=== PATIENT | female | born 1940 | race Caucasian/White ===

== ENCOUNTER 2016-07-24 09:02 | Inpatient (IN) | payer OTHER ==
[~2016-07-24] VITALS: Ht 160 cm; Wt 86.2 kg
[~2016-07-24 09:02] MED LIST: ACTONEL35 MG PO; ACTONEL5 MG PO; ACULAR 3ML 3 ML5 ML; ALLERGY 4-HOUR4 MG PO; AMOXICILLIN500 M2 PO; ANAPROX DS550 MG PO; ATENOLOL50 MG PO; CELEXA10 MG PO; CELEXA20 MG; CIPRO500 MG PO; CIPROFLOXACIN500 MG PO; CITALOPRAM10 MG PO; CITALOPRAM20 MG PO; COLACE100 MG PO; COMTAN200 MG; COMTAN200 MG PO; COREG6.25 MG; COREG6.25 MG PO; CYCLOBENZAPRINE5 MG PO; DARVOCET N 1001 TAB PO; DOCUSATE CALCI100 MG PO; GLUCOPHAGE500 MG PO; HUMALOG100 U/ML; HUMALOG100 UNIT/2 SQ; HUMULIN 70/30 720 ML SC; IMDUR30 MG PO; LEVEMIR10 ML SC; LEVEMIR100 U/ML SC; LYRICA75 MG PO; MACROBID100 M1 PO; MAGNESIUM OXID400 MG PO; METFORMIN500 MG PO; MIRALAX POWDER17 G1 PO; MIRALAX17 GM PO; NEXIUM40 MG; NEXIUM40 MG PO; NITROSTAT0.3 M1 SL; NORVASC5 MG PO; NOVOLOG 701 UNIT/0.0 SC; NOVOLOG FLEX100 U/ML SC; NOVOLOG MIX 70/33 ML; NOVOLOG MIX 70/33 ML SC; OCUFLOX 0.3% 5 M5 ML; PHILLIPS' STOO100 MG PO; PLAVIX75 M1 PO; PLAVIX75 MG PO; PRAVACHOL40 MG PO; PRED FORTE 1 ML1 ML; PREVACID15 MG PO; PRILOSEC20 M1 PO; PYRIDIUM200 MG PO; Percocet 325 MG1 TAB PO; SINEMET 25-1001 TA1; SORBITRATE PO; STALEVO 100 251 TAB PO; SYMBICORT1 AE1; SYMBICORT1 AE1 IH; SYMBICORT1 AER INH; SYNTHROID,LEV100 MCG PO; TYLENOL500 MG PO; ULTRAM50 MG PO; VITAMIN D2000 IU PO; VITAMIN D32000 UNI1 PO; ZOFRAN4 MG PO; Zofran4 MG; [UNRECOGNIZED DRUG - CODE] PO; [UNRECOGNIZED DRUG - REMARK] SC
[2016-07-24 09:51] LABS: BASO % 0.4 % (0.0-1.0); EOS # 0.1 10*3/uL (0.0-0.4); EOS % 1.6 % (1.0-4.0); HEMATOCRIT 33.4 % (37.0-47.0); HEMOGLOBIN 11.5 g/dl (12.0-16.0); LYMPH # 1.4 10*3/uL (1.3-4.4); LYMPH % 19.4 % (27.0-41.0); MEAN CELL VOLUME 87.7 fl (81.0-99.0); MEAN CORPUSCULAR HGB 30.2 pg (27.0-31.0); MEAN CORPUSCULAR HGB CONC 34.4 g/dl (33.0-37.0); MEAN PLATELET VOLUME 9.8 fl (9.6-12.3); MONO # 0.7 10*3/uL (0.1-1.0); NEUT # 4.8 10*3/uL (2.3-7.9); NEUT % 68.3 % (47.0-73.0); PLATELET COUNT AUTOMATED 226 10*3/uL (130-400); RED BLOOD COUNT 3.81 10*6/uL (4.10-5.10); RED CELL DISTRI WIDTH 14.6 % (0-14.5); WHITE BLOOD COUNT 7.1 10*3/uL (4.8-10.8)
[2016-07-24] MEDS ORDERED: SYMBICORT1 AE1 INH (09:57)
[2016-07-24 09:59] LABS: PROTHROMBIN TIME 10.8 SECONDS (9.0-12.4)
[2016-07-24 10:07] LABS: ALBUMIN 3.5 gm/dl (3.1-4.5); ALKALINE PHOSPHATASE 77 U/L (45-117); BILIRUBIN, TOTAL 0.7 mg/dl (0.2-1.0); BUN 12 mg/dl (7-24); C-REACTIVE PROTEIN 1.58 MG/DL (0-0.3); CARBON DIOXIDE 28 mmol/L (21-32); CHLORIDE 93 mmol/L (98-107); CKMB 2.4 ng/ml (0.5-3.6); CPK 138 U/L (26-192); EST GLOM FILT AFRICAN AMERICAN > 60 ml/min; GLUCOSE 102 mg/dL (65-99); MAGNESIUM 1.5 mg/dL (1.5-2.1); POTASSIUM 3.5 mmol/L (3.5-5.1); SGOT/AST 27 IU/L (3-35); SGPT/ALT 14 U/L (12-78); SODIUM 133 mmol/L (136-145); TOTAL PROTEIN 7.6 gm/dL (6.4-8.2); TROPONIN I < 0.015 ng/ml (<0.045)
[2016-07-24] MEDS ORDERED: NEXIUM40 MG PO (10:07)
[2016-07-24] MEDS ORDERED: PROAIR HFA8.5 GM INH (10:10)
[2016-07-24] MEDS ORDERED: ACTONEL35 MG PO (10:11)
[2016-07-24] MEDS ORDERED: GLUCOPHAGE500 M1 PO (10:13)
[2016-07-24] MEDS ORDERED: IMDUR SA30 MG PO (10:14)
[2016-07-24] MEDS ORDERED: LYRICA75 M1 PO (10:15)
[2016-07-24] MEDS ORDERED: SINEMET 25-1001 TA1 PO (10:16)
[2016-07-24] MEDS ORDERED: Zofran4 MG PO (10:17)
[2016-07-24] MEDS ORDERED: VOLTAREN11 PO (10:19)
[2016-07-24] MEDS ORDERED: MULTI VITAMINS1 TAB PO (10:21)
[2016-07-24] MEDS ORDERED: NORCO 7.5-3251 EACH PO (10:21)
[2016-07-24] MEDS ORDERED: TYLENOL EXTRA500 M2 PO (14:17)
[2016-07-24] MEDS ORDERED: NOVOLOG MIX 70/33 ML SQ (14:19)
[2016-07-24] MEDS ORDERED: ALLERGY 4-HOUR4 MG PO (14:19)
[2016-07-24] MEDS ORDERED: ZOFRAN4 MG PO (14:20)
[2016-07-24] MEDS ORDERED: NITROSTAT0.4 MG SL (14:21)
[2016-07-24] MEDS ORDERED: VOLTAREN GEL1% TP (14:21)
[2016-07-24] MEDS ORDERED: LYSINE500 MG PO (14:22)
[2016-07-24 16:34] LABS: BILIRUBIN NEGATIVE (NEGATIVE); BLOOD NEGATIVE (NEGATIVE); CLARITY SL CLOUDY (CLEAR); COLOR YELLOW (YELLOW); GLUCOSE NEGATIVE (NEGATIVE); KETONE NEGATIVE (NEGATIVE); LEUKO ESTERASE TRACE (NEGATIVE); NITRITE NEGATIVE (NEGATIVE); PROTEIN TRACE (NEGATIVE); UROBILINOGEN 0.2 E.U./dl (0.2-1.0)
[2016-07-24 16:40] LABS: RBC 0-2 rbc/hpf (0-2); URINE REFLEX COMMENT YES (NO)
[2016-07-24 17:58] LABS: CKMB 2.3 ng/ml (0.5-3.6); CPK 133 U/L (26-192)
[2016-07-24 17:59] LABS: TROPONIN I < 0.015 ng/ml (<0.045)
[2016-07-25 00:56] LABS: CKMB 2.1 ng/ml (0.5-3.6); CPK 118 U/L (26-192); TROPONIN I < 0.015 ng/ml (<0.045)
[2016-07-25 06:34] LABS: HEMOGLOBIN 11.7 g/dl (12.0-16.0); IG # 0.1 10*3/uL (0.0-0.1); LYMPH # 0.8 10*3/uL (1.3-4.4); MEAN CELL VOLUME 88.8 fl (81.0-99.0); MEAN CORPUSCULAR HGB 30.5 pg (27.0-31.0); MEAN CORPUSCULAR HGB CONC 34.4 g/dl (33.0-37.0); MEAN PLATELET VOLUME 10.3 fl (9.6-12.3); MONO # 0.1 10*3/uL (0.1-1.0); MONO % 1.3 % (3.0-9.0); NEUT # 6.2 10*3/uL (2.3-7.9); PLATELET COUNT AUTOMATED 230 10*3/uL (130-400); RED BLOOD COUNT 3.83 10*6/uL (4.10-5.10); RED CELL DISTRI WIDTH 14.6 % (0-14.5); WHITE BLOOD COUNT 7.2 10*3/uL (4.8-10.8)
[2016-07-25 06:46] LABS: CKMB 2.2 ng/ml (0.5-3.6); CPK 126 U/L (26-192)
[2016-07-25 06:47] LABS: TROPONIN I < 0.015 ng/ml (<0.045)
[2016-07-25 06:54] LABS: HEMOGLOBIN A1c 7.8 % (4.8-5.6)
[2016-07-25 07:09] LABS: ALBUMIN 3.4 gm/dl (3.1-4.5); ALKALINE PHOSPHATASE 79 U/L (45-117); BILIRUBIN, TOTAL 0.6 mg/dl (0.2-1.0); BUN 15 mg/dl (7-24); CARBON DIOXIDE 28 mmol/L (21-32); CHLORIDE 93 mmol/L (98-107); CHOLESTEROL 177 mg/dL (<200); EST GLOM FILT AFRICAN AMERICAN > 60 ml/min; FREE T4 0.18 ng/dl (0.76-1.46); GLUCOSE 312 mg/dL (65-99); HDL CHOLESTEROL 83 mg/dl (40-60); LDL CHOLESTEROL 80 mg/dL (9-159); MAGNESIUM 1.6 mg/dL (1.5-2.1); PHOSPHOROUS 2.6 mg/dL (2.5-4.9); POTASSIUM 3.9 mmol/L (3.5-5.1); SGOT/AST 20 IU/L (3-35); SGPT/ALT 19 U/L (12-78); SODIUM 134 mmol/L (136-145); TOTAL PROTEIN 7.6 gm/dL (6.4-8.2); TRIGLYCERIDES 72 mg/dl (<150); VLDL CHOLESTEROL 14 mg/dL (6-40)
[2016-07-25 07:11] LABS: PROTHROMBIN TIME 10.8 SECONDS (9.0-12.4)
[2016-07-25 07:32] LABS: FOLIC ACID 10.37 ng/mL (>5.38); VITAMIN D, 25-HYDROXY 27.6 ng/mL (30-100)
[2016-07-26 06:12] LABS: HEMATOCRIT 31.6 % (37.0-47.0); HEMOGLOBIN 10.7 g/dl (12.0-16.0); MEAN CELL VOLUME 89.8 fl (81.0-99.0); MEAN CORPUSCULAR HGB 30.4 pg (27.0-31.0); MEAN CORPUSCULAR HGB CONC 33.9 g/dl (33.0-37.0); MEAN PLATELET VOLUME 10.1 fl (9.6-12.3); PLATELET COUNT AUTOMATED 233 10*3/uL (130-400); RED BLOOD COUNT 3.52 10*6/uL (4.10-5.10); RED CELL DISTRI WIDTH 14.7 % (0-14.5); WHITE BLOOD COUNT 10.3 10*3/uL (4.8-10.8)
[2016-07-26 06:21] LABS: BUN 13 mg/dl (7-24); CARBON DIOXIDE 28 mmol/L (21-32); CHLORIDE 96 mmol/L (98-107); EST GLOM FILT AFRICAN AMERICAN > 60 ml/min; GLUCOSE 307 mg/dL (65-99); POTASSIUM 3.8 mmol/L (3.5-5.1); SODIUM 135 mmol/L (136-145)
[2016-07-26 06:40] LABS: LYMPHOCYTE # 0.3 10*3/uL (1.3-4.4); NEUTROPHILS 97 % (47-73); TOTAL CELLS COUNTED 100 #CELLS
[2016-07-26 06:41] LABS: PLATELET SUFFICIENCY NORMAL (NORMAL)
[2016-07-26] MEDS ORDERED: MUCINEX ER600 MG PO (10:34)
[2016-07-26] MEDS ORDERED: LEVAQUIN750 M1 PO (10:34)
== END 2016-07-26 14:37 | disposition home or self-care (01) | DRG 189 ==
LOC: ED 09:02 → EDHOLD 10:25 → 5E 10:30
PROVIDERS: Emergency Medicine; Hospitalist; Internal Medicine
DX: J96.00 Acute respiratory failure, unspecified whether with hypoxia or hypercapnia (principal); E11.65 Type 2 diabetes mellitus with hyperglycemia; D64.9 Anemia, unspecified; J44.1 Chronic obstructive pulmonary disease with (acute) exacerbation; E87.1 Hypo-osmolality and hyponatremia; R07.89 Other chest pain; I10 Essential (primary) hypertension; I25.10 Atherosclerotic heart disease of native coronary artery without angina pectoris; Z95.5 Presence of coronary angioplasty implant and graft; Z85.118 Personal history of other malignant neoplasm of bronchus and lung; Z86.73 Personal history of transient ischemic attack (TIA), and cerebral infarction without residual deficits; Z85.42 Personal history of malignant neoplasm of other parts of uterus; Z96.653 Presence of artificial knee joint, bilateral; Z90.49 Acquired absence of other specified parts of digestive tract; Z82.3 Family history of stroke; Z82.49 Family history of ischemic heart disease and other diseases of the circulatory system; Z79.4 Long term (current) use of insulin; I25.2 Old myocardial infarction; E78.5 Hyperlipidemia, unspecified

== ENCOUNTER 2016-07-31 15:39 | Emergency (ER) | payer OTHER ==
[~2016-07-31] VITALS: Ht 152.4 cm
[~2016-07-31 15:39] MED LIST changes: +GLUCOPHAGE500 M1 PO; +IMDUR SA30 MG PO; +LEVAQUIN750 M1 PO; +LYRICA75 M1 PO; +LYSINE500 MG PO; +MUCINEX ER600 MG PO; +MULTI VITAMINS1 TAB PO; +NITROSTAT0.4 MG SL; +NORCO 7.5-3251 EACH PO; +NOVOLOG MIX 70/33 ML SQ; +PROAIR HFA8.5 GM INH; +SINEMET 25-1001 TA1 PO; +SYMBICORT1 AE1 INH; +TYLENOL EXTRA500 M2 PO; +VOLTAREN GEL1% TP; +VOLTAREN11 PO; +Zofran4 MG PO
[2016-07-31 15:40] VITALS: BP 137/85
[2016-07-31 16:23] LABS: BASO % 0.1 % (0.0-1.0); EOS # 0.1 10*3/uL (0.0-0.4); EOS % 1.7 % (1.0-4.0); HEMATOCRIT 33.8 % (37.0-47.0); HEMOGLOBIN 11.4 g/dl (12.0-16.0); IG # 0.1 10*3/uL (0.0-0.1); LYMPH # 1.5 10*3/uL (1.3-4.4); MEAN CELL VOLUME 89.4 fl (81.0-99.0); MEAN CORPUSCULAR HGB 30.2 pg (27.0-31.0); MEAN CORPUSCULAR HGB CONC 33.7 g/dl (33.0-37.0); MEAN PLATELET VOLUME 9.4 fl (9.6-12.3); MONO # 0.7 10*3/uL (0.1-1.0); MONO % 8.3 % (3.0-9.0); NEUT # 5.7 10*3/uL (2.3-7.9); NEUT % 70.5 % (47.0-73.0); PLATELET COUNT AUTOMATED 225 10*3/uL (130-400); RED BLOOD COUNT 3.78 10*6/uL (4.10-5.10); RED CELL DISTRI WIDTH 14.8 % (0-14.5); WHITE BLOOD COUNT 8.1 10*3/uL (4.8-10.8)
[2016-07-31] MEDS ORDERED: OXYGEN NAS (16:29)
[2016-07-31] MEDS ORDERED: CELEXA40 MG PO (16:32)
[2016-07-31] MEDS ORDERED: GLUCOPHAGE500 MG PO (16:33)
[2016-07-31 16:38] LABS: ALBUMIN 3.4 gm/dl (3.1-4.5); ALKALINE PHOSPHATASE 99 U/L (45-117); BILIRUBIN, TOTAL 0.5 mg/dl (0.2-1.0); BUN 19 mg/dl (7-24); CARBON DIOXIDE 35 mmol/L (21-32); CHLORIDE 88 mmol/L (98-107); EST GLOM FILT AFRICAN AMERICAN > 60 ml/min; GLUCOSE 218 mg/dL (65-99); POTASSIUM 3.6 mmol/L (3.5-5.1); SGOT/AST 18 IU/L (3-35); SGPT/ALT 33 U/L (12-78); SODIUM 133 mmol/L (136-145); TOTAL PROTEIN 7.2 gm/dL (6.4-8.2)
[2016-07-31 16:47] LABS: BILIRUBIN NEGATIVE (NEGATIVE); BLOOD NEGATIVE (NEGATIVE); CLARITY SL CLOUDY (CLEAR); COLOR YELLOW (YELLOW); GLUCOSE NEGATIVE (NEGATIVE); KETONE NEGATIVE (NEGATIVE); LEUKO ESTERASE 1+ (NEGATIVE); NITRITE NEGATIVE (NEGATIVE); PH 6.5 (5.0-9.0); PROTEIN NEGATIVE (NEGATIVE); SPECIFIC GRAVITY 1.015 (1.005-1.030); UROBILINOGEN 0.2 E.U./dl (0.2-1.0)
[2016-07-31 17:00] LABS: BACTERIA 2+; URINE REFLEX COMMENT YES (NO); WBC 41-50 wbc/hpf (0-5)
[2016-07-31] MEDS ORDERED: BACTRIM DS 8001 TA1 PO (18:29)
== END 2016-07-31 18:30 | disposition home or self-care (01) ==
LOC: ED 15:39
PROVIDERS: Emergency Medicine
DX: E87.1 Hypo-osmolality and hyponatremia (principal); N39.0 Urinary tract infection, site not specified; R60.9 Edema, unspecified; Z87.891 Personal history of nicotine dependence; Z90.49 Acquired absence of other specified parts of digestive tract; J45.909 Unspecified asthma, uncomplicated; I10 Essential (primary) hypertension; Z86.73 Personal history of transient ischemic attack (TIA), and cerebral infarction without residual deficits; E78.5 Hyperlipidemia, unspecified; E11.9 Type 2 diabetes mellitus without complications; Z79.4 Long term (current) use of insulin; Z79.899 Other long term (current) drug therapy

== ENCOUNTER 2016-08-04 07:55 | Emergency (ER) | payer OTHER ==
[~2016-08-04] VITALS: Ht 165.1 cm; Wt 74.8 kg
[2016-08-04 07:55] VITALS: BP 142/78
[~2016-08-04 07:55] MED LIST changes: +BACTRIM DS 8001 TA1 PO; +CELEXA40 MG PO; +OXYGEN NAS
[2016-08-04 09:26] LABS: BASO % 0.2 % (0.0-1.0); EOS % 0.3 % (1.0-4.0); HEMATOCRIT 30.4 % (37.0-47.0); HEMOGLOBIN 10.2 g/dl (12.0-16.0); IG # 0.1 10*3/uL (0.0-0.1); LYMPH # 0.8 10*3/uL (1.3-4.4); LYMPH % 7.9 % (27.0-41.0); MEAN CELL VOLUME 90.7 fl (81.0-99.0); MEAN CORPUSCULAR HGB 30.4 pg (27.0-31.0); MEAN CORPUSCULAR HGB CONC 33.6 g/dl (33.0-37.0); MEAN PLATELET VOLUME 9.3 fl (9.6-12.3); MONO # 1.1 10*3/uL (0.1-1.0); MONO % 10.7 % (3.0-9.0); NEUT # 8.4 10*3/uL (2.3-7.9); NEUT % 80.1 % (47.0-73.0); PLATELET COUNT AUTOMATED 194 10*3/uL (130-400); RED BLOOD COUNT 3.35 10*6/uL (4.10-5.10); RED CELL DISTRI WIDTH 14.7 % (0-14.5); WHITE BLOOD COUNT 10.5 10*3/uL (4.8-10.8)
[2016-08-04 09:42] LABS: BUN 12 mg/dl (7-24); CARBON DIOXIDE 31 mmol/L (21-32); CHLORIDE 91 mmol/L (98-107); EST GLOM FILT AFRICAN AMERICAN > 60 ml/min; GLUCOSE 283 mg/dL (65-99); POTASSIUM 3.8 mmol/L (3.5-5.1); SODIUM 131 mmol/L (136-145)
[2016-08-04 15:30] VITALS: BP 131/76
[2016-08-04 17:00] VITALS: BP 144/82
[2016-08-04 19:00] VITALS: BP 138/86
== END 2016-08-04 22:00 | disposition short-term general hospital (02) ==
LOC: ED 07:55 → EDHOLD 14:28 → ED 14:28 → 4E 14:54 → EDHOLD 14:54 → ED 22:00
PROVIDERS: Emergency Medicine
DX: J18.1 Lobar pneumonia, unspecified organism (principal); R91.8 Other nonspecific abnormal finding of lung field; J45.909 Unspecified asthma, uncomplicated; I25.10 Atherosclerotic heart disease of native coronary artery without angina pectoris; I10 Essential (primary) hypertension; I25.2 Old myocardial infarction; E78.5 Hyperlipidemia, unspecified; G20 Parkinson's disease; E11.65 Type 2 diabetes mellitus with hyperglycemia; Z85.828 Personal history of other malignant neoplasm of skin; Z86.73 Personal history of transient ischemic attack (TIA), and cerebral infarction without residual deficits; Z90.49 Acquired absence of other specified parts of digestive tract; Z96.653 Presence of artificial knee joint, bilateral; Z98.890 Other specified postprocedural states; Z87.891 Personal history of nicotine dependence; Z79.899 Other long term (current) drug therapy; Z79.4 Long term (current) use of insulin

== ENCOUNTER 2016-10-16 07:54 | Inpatient (IN) | payer OTHER ==
[2016-10-16] VITALS (7 sets, daily range): BP systolic 96–148; BP diastolic 50–94
[~2016-10-16] VITALS: Ht 157.4 cm; Wt 81.3 kg
[2016-10-16 08:20] LABS: BASO % 0.2 % (0.0-1.0); EOS % 0.2 % (1.0-4.0); HEMATOCRIT 33.4 % (37.0-47.0); HEMOGLOBIN 11.1 g/dl (12.0-16.0); IG # 0.1 10*3/uL (0.0-0.1); LYMPH # 0.8 10*3/uL (1.3-4.4); LYMPH % 14.6 % (27.0-41.0); MEAN CELL VOLUME 89.3 fl (81.0-99.0); MEAN CORPUSCULAR HGB 29.7 pg (27.0-31.0); MEAN CORPUSCULAR HGB CONC 33.2 g/dl (33.0-37.0); MEAN PLATELET VOLUME 9.1 fl (9.6-12.3); MONO # 0.4 10*3/uL (0.1-1.0); MONO % 7.1 % (3.0-9.0); NEUT # 4.2 10*3/uL (2.3-7.9); PLATELET COUNT AUTOMATED 291 10*3/uL (130-400); RED BLOOD COUNT 3.74 10*6/uL (4.10-5.10); RED CELL DISTRI WIDTH 13.8 % (0-14.5); WHITE BLOOD COUNT 5.5 10*3/uL (4.8-10.8)
[2016-10-16 08:29] LABS: INTERNATIONAL NORM RATIO 1.1 (2.0-3.5); PROTHROMBIN TIME 11.6 SECONDS (9.0-12.4)
[2016-10-16 08:35] LABS: ALBUMIN 3.4 gm/dl (3.1-4.5); ALKALINE PHOSPHATASE 137 U/L (45-117); BILIRUBIN, TOTAL 0.7 mg/dl (0.2-1.0); BUN 16 mg/dl (7-24); CARBON DIOXIDE 33 mmol/L (21-32); CHLORIDE 91 mmol/L (98-107); EST GLOM FILT AFRICAN AMERICAN > 60 ml/min; GLUCOSE 455 mg/dL (65-99); MAGNESIUM 1.3 mg/dL (1.5-2.1); POTASSIUM 3.9 mmol/L (3.5-5.1); SGOT/AST 23 IU/L (3-35); SGPT/ALT 6 U/L (12-78); SODIUM 135 mmol/L (136-145); TOTAL PROTEIN 8.3 gm/dL (6.4-8.2)
[2016-10-16 08:37] LABS: FREE T4 1.24 ng/dl (0.76-1.46)
[2016-10-16 08:49] LABS: BILIRUBIN NEGATIVE (NEGATIVE); BLOOD 1+ (NEGATIVE); CLARITY CLOUDY (CLEAR); COLOR YELLOW (YELLOW); GLUCOSE 3+ (NEGATIVE); KETONE 1+ (NEGATIVE); LEUKO ESTERASE 1+ (NEGATIVE); NITRITE NEGATIVE (NEGATIVE); PH 6.5 (5.0-9.0); PROTEIN 1+ (NEGATIVE); SPECIFIC GRAVITY <= 1.005 (1.005-1.030); UROBILINOGEN 0.2 E.U./dl (0.2-1.0)
[2016-10-16 08:59] LABS: URINE REFLEX COMMENT YES (NO)
[2016-10-16 09:00] LABS: BACTERIA 2+; RBC 0-2 rbc/hpf (0-2); WBC TNTC wbc/hpf (0-5)
[2016-10-16 09:18] LABS: BUN 17 mg/dl (7-24); CARBON DIOXIDE 33 mmol/L (21-32); CHLORIDE 91 mmol/L (98-107); EST GLOM FILT AFRICAN AMERICAN > 60 ml/min; GLUCOSE 445 mg/dL (65-99); POTASSIUM 4.2 mmol/L (3.5-5.1); SODIUM 132 mmol/L (136-145)
[2016-10-16] MEDS ORDERED: LASIX40 MG PO (09:20)
[2016-10-16] MEDS ORDERED: BREO ELLIPTA 11 EACH IH (09:21)
[2016-10-16] MEDS ORDERED: CLARITIN10 MG PO (09:22)
[2016-10-16] MEDS ORDERED: ALENDRONATE SOD70 M1 PO (09:25)
[2016-10-16 10:17] LABS: LA>2 REFLEX 2 HR DRAW NOW
[2016-10-16 10:34] LABS: BUN 19 mg/dl (7-24); CARBON DIOXIDE 31 mmol/L (21-32); CHLORIDE 97 mmol/L (98-107); EST GLOM FILT AFRICAN AMERICAN > 60 ml/min; GLUCOSE 228 mg/dL (65-99); POTASSIUM 4.4 mmol/L (3.5-5.1); SODIUM 140 mmol/L (136-145)
[2016-10-16 10:39] LABS: LA>2 RFLX FOLLOW UP AT 2 HRS 3.8 mmol/L (0.4-2.0)
[2016-10-16 12:30] LABS: LA>2 REFLEX 4 HR DRAW NOW
[2016-10-16 12:32] LABS: CKMB 0.7 ng/ml (0.5-3.6); CPK 58 U/L (26-192)
[2016-10-16 12:34] LABS: TROPONIN I < 0.015 ng/ml (<0.045)
[2016-10-16 18:40] LABS: CKMB 1.1 ng/ml (0.5-3.6); CPK 70 U/L (26-192)
[2016-10-16 18:43] LABS: TROPONIN I < 0.015 ng/ml (<0.045)
[2016-10-17] VITALS: BP 113/82
[2016-10-17 00:21] LABS: CKMB 0.8 ng/ml (0.5-3.6); CPK 88 U/L (26-192)
[2016-10-17 00:22] LABS: TROPONIN I < 0.015 ng/ml (<0.045)
[2016-10-17 06:31] LABS: BASO % 0.3 % (0.0-1.0); EOS % 0.3 % (1.0-4.0); HEMATOCRIT 30.7 % (37.0-47.0); HEMOGLOBIN 10.2 g/dl (12.0-16.0); IG # 0.1 10*3/uL (0.0-0.1); LYMPH # 1.2 10*3/uL (1.3-4.4); LYMPH % 18.5 % (27.0-41.0); MEAN CELL VOLUME 90.3 fl (81.0-99.0); MEAN CORPUSCULAR HGB CONC 33.2 g/dl (33.0-37.0); MEAN PLATELET VOLUME 9.3 fl (9.6-12.3); MONO # 0.5 10*3/uL (0.1-1.0); MONO % 7.1 % (3.0-9.0); NEUT # 4.8 10*3/uL (2.3-7.9); PLATELET COUNT AUTOMATED 290 10*3/uL (130-400); RED CELL DISTRI WIDTH 14.1 % (0-14.5); WHITE BLOOD COUNT 6.5 10*3/uL (4.8-10.8)
[2016-10-17 06:52] LABS: HEMOGLOBIN A1c 8.5 % (4.8-5.6)
[2016-10-17 07:00] LABS: BUN 13 mg/dl (7-24); CARBON DIOXIDE 31 mmol/L (21-32); CHLORIDE 99 mmol/L (98-107); CHOLESTEROL 124 mg/dL (<200); EST GLOM FILT AFRICAN AMERICAN > 60 ml/min; GLUCOSE 149 mg/dL (65-99); HDL CHOLESTEROL 46 mg/dl (40-60); LDL CHOLESTEROL 48 mg/dL (9-159); MAGNESIUM 1.4 mg/dL (1.5-2.1); PHOSPHOROUS 2.3 mg/dL (2.5-4.9); POTASSIUM 3.3 mmol/L (3.5-5.1); SODIUM 139 mmol/L (136-145); TRIGLYCERIDES 149 mg/dl (<150); VLDL CHOLESTEROL 30 mg/dL (6-40)
[2016-10-17 07:11] LABS: VITAMIN D, 25-HYDROXY 29.9 ng/mL (30-100)
[2016-10-17 07:12] LABS: FOLIC ACID 18.8 ng/mL (>5.38)
[2016-10-17 08:00] VITALS: BP 106/88
[2016-10-17 16:00] VITALS: BP 128/60
[2016-10-17 20:00] VITALS: BP 122/66
[2016-10-18] VITALS: BP 128/67
[2016-10-18 06:11] LABS: BASO % 0.1 % (0.0-1.0); EOS % 0.4 % (1.0-4.0); HEMATOCRIT 29.1 % (37.0-47.0); HEMOGLOBIN 9.4 g/dl (12.0-16.0); IG # 0.1 10*3/uL (0.0-0.1); LYMPH # 1.2 10*3/uL (1.3-4.4); LYMPH % 17.4 % (27.0-41.0); MEAN CELL VOLUME 92.7 fl (81.0-99.0); MEAN CORPUSCULAR HGB 29.9 pg (27.0-31.0); MEAN CORPUSCULAR HGB CONC 32.3 g/dl (33.0-37.0); MEAN PLATELET VOLUME 9.1 fl (9.6-12.3); MONO # 0.7 10*3/uL (0.1-1.0); MONO % 10.3 % (3.0-9.0); NEUT # 4.9 10*3/uL (2.3-7.9); NEUT % 70.8 % (47.0-73.0); PLATELET COUNT AUTOMATED 259 10*3/uL (130-400); RED BLOOD COUNT 3.14 10*6/uL (4.10-5.10); RED CELL DISTRI WIDTH 14.4 % (0-14.5)
[2016-10-18 06:49] LABS: BUN 15 mg/dl (7-24); CARBON DIOXIDE 30 mmol/L (21-32); CHLORIDE 103 mmol/L (98-107); GLUCOSE 54 mg/dL (65-99); POTASSIUM 3.2 mmol/L (3.5-5.1); SODIUM 141 mmol/L (136-145)
[2016-10-18 06:50] LABS: EST GLOM FILT AFRICAN AMERICAN > 60 ml/min
[2016-10-18 08:00] VITALS: BP 110/80
[2016-10-18] MEDS ORDERED: BACTRIM DS 8001 TAB PO (11:20)
== END 2016-10-18 15:39 | disposition home health service (06) | DRG 871 ==
LOC: ED 07:54 → EDHOLD 09:07 → ICCU 09:12 → 5E 12:10
PROVIDERS: Emergency Medicine; Family Medicine; Student in an Organized Health Care Education/Training Program
DX: A41.9 Sepsis, unspecified organism (principal); E11.00 Type 2 diabetes mellitus with hyperosmolarity without nonketotic hyperglycemic-hyperosmolar coma (NKHHC); N39.0 Urinary tract infection, site not specified; G20 Parkinson's disease; N12 Tubulo-interstitial nephritis, not specified as acute or chronic; R65.20 Severe sepsis without septic shock; D64.9 Anemia, unspecified; I10 Essential (primary) hypertension; E78.5 Hyperlipidemia, unspecified; I25.10 Atherosclerotic heart disease of native coronary artery without angina pectoris; J44.9 Chronic obstructive pulmonary disease, unspecified; E55.9 Vitamin D deficiency, unspecified; B96.4 Proteus (mirabilis) (morganii) as the cause of diseases classified elsewhere

== ENCOUNTER 2016-10-18 20:30 | Inpatient (IN) | payer OTHER ==
[~2016-10-18] VITALS: Ht 160 cm; Wt 85.8 kg
[2016-10-18 20:30] VITALS: BP 142/78
[~2016-10-18 20:30] MED LIST changes: +ALENDRONATE SOD70 M1 PO; +BACTRIM DS 8001 TAB PO; +BREO ELLIPTA 11 EACH IH; +CLARITIN10 MG PO; +LASIX40 MG PO
[2016-10-18 21:09] LABS: BASO % 0.2 % (0.0-1.0); EOS % 0.1 % (1.0-4.0); HEMATOCRIT 27.9 % (37.0-47.0); HEMOGLOBIN 9.3 g/dl (12.0-16.0); LYMPH % 11.3 % (27.0-41.0); MEAN CELL VOLUME 90.6 fl (81.0-99.0); MEAN CORPUSCULAR HGB 30.2 pg (27.0-31.0); MEAN CORPUSCULAR HGB CONC 33.3 g/dl (33.0-37.0); MEAN PLATELET VOLUME 9.3 fl (9.6-12.3); MONO # 0.8 10*3/uL (0.1-1.0); MONO % 9.7 % (3.0-9.0); NEUT # 6.7 10*3/uL (2.3-7.9); NEUT % 78.2 % (47.0-73.0); PLATELET COUNT AUTOMATED 238 10*3/uL (130-400); RED BLOOD COUNT 3.08 10*6/uL (4.10-5.10); RED CELL DISTRI WIDTH 14.4 % (0-14.5); WHITE BLOOD COUNT 8.5 10*3/uL (4.8-10.8)
[2016-10-18 21:18] LABS: INTERNATIONAL NORM RATIO 1.1 (2.0-3.5); PROTHROMBIN TIME 11.6 SECONDS (9.0-12.4)
[2016-10-18 21:26] LABS: ALBUMIN 2.8 gm/dl (3.1-4.5); BILIRUBIN, TOTAL 0.5 mg/dl (0.2-1.0); BUN 13 mg/dl (7-24); CARBON DIOXIDE 27 mmol/L (21-32); CHLORIDE 101 mmol/L (98-107); EST GLOM FILT AFRICAN AMERICAN > 60 ml/min; GLUCOSE 234 mg/dL (65-99); MAGNESIUM 1.7 mg/dL (1.5-2.1); POTASSIUM 3.5 mmol/L (3.5-5.1); SGOT/AST 52 IU/L (3-35); SODIUM 138 mmol/L (136-145); TOTAL PROTEIN 6.7 gm/dL (6.4-8.2)
[2016-10-18 21:27] LABS: ALKALINE PHOSPHATASE 12 U/L (45-117); SGPT/ALT < 6 U/L (12-78); TROPONIN I < 0.015 ng/ml (<0.045)
[2016-10-18 22:42] LABS: BILIRUBIN NEGATIVE (NEGATIVE); BLOOD TRACE-INTACT (NEGATIVE); CLARITY SL CLOUDY (CLEAR); COLOR YELLOW (YELLOW); GLUCOSE NEGATIVE (NEGATIVE); KETONE NEGATIVE (NEGATIVE); LEUKO ESTERASE TRACE (NEGATIVE); NITRITE NEGATIVE (NEGATIVE); PROTEIN 2+ (NEGATIVE); SPECIFIC GRAVITY 1.025 (1.005-1.030); UROBILINOGEN 0.2 E.U./dl (0.2-1.0)
[2016-10-18 22:46] LABS: BACTERIA 2+; EPITHELIAL CELLS 0-2; URINE REFLEX COMMENT YES (NO); WBC 16-20 wbc/hpf (0-5)
[2016-10-18 22:50] LABS: URINE AMPHETAMINES < 1000 (1000ng/ml); URINE BARBITURATES < 200 (200ng/ml); URINE COCAINE < 300 (300ng/ml)
[2016-10-19 01:15] VITALS: BP 121/62
[2016-10-19 06:11] LABS: BASO % 0.1 % (0.0-1.0); EOS % 0.1 % (1.0-4.0); LYMPH # 1.3 10*3/uL (1.3-4.4); LYMPH % 16.1 % (27.0-41.0); MEAN CELL VOLUME 92.1 fl (81.0-99.0); MEAN CORPUSCULAR HGB 29.6 pg (27.0-31.0); MEAN CORPUSCULAR HGB CONC 32.1 g/dl (33.0-37.0); MEAN PLATELET VOLUME 9.1 fl (9.6-12.3); MONO # 0.9 10*3/uL (0.1-1.0); MONO % 11.1 % (3.0-9.0); NEUT # 5.6 10*3/uL (2.3-7.9); NEUT % 72.1 % (47.0-73.0); PLATELET COUNT AUTOMATED 239 10*3/uL (130-400); RED BLOOD COUNT 3.04 10*6/uL (4.10-5.10); RED CELL DISTRI WIDTH 14.6 % (0-14.5); WHITE BLOOD COUNT 7.8 10*3/uL (4.8-10.8)
[2016-10-19 06:29] LABS: BUN 9 mg/dl (7-24); CARBON DIOXIDE 30 mmol/L (21-32); CHLORIDE 100 mmol/L (98-107); EST GLOM FILT AFRICAN AMERICAN > 60 ml/min; GLUCOSE 202 mg/dL (65-99); POTASSIUM 3.6 mmol/L (3.5-5.1); SODIUM 137 mmol/L (136-145)
[2016-10-19 08:00] VITALS: BP 106/41
[2016-10-19 12:00] VITALS: BP 168/83
[2016-10-19 16:00] VITALS: BP 149/72
[2016-10-19 20:00] VITALS: BP 154/73
[2016-10-20] VITALS: BP 158/81
[2016-10-20 04:00] VITALS: BP 146/85
[2016-10-20 08:00] VITALS: BP 127/66
[2016-10-20 12:00] VITALS: BP 95/77
[2016-10-20 16:00] VITALS: BP 95/54
[2016-10-20 20:00] VITALS: BP 116/46
[2016-10-21] VITALS: BP 106/52
[2016-10-21 08:00] VITALS: BP 140/90
[2016-10-21 12:00] VITALS: BP 116/68
[2016-10-21 16:00] VITALS: BP 110/54
[2016-10-21 20:00] VITALS: BP 110/57
[2016-10-22] VITALS: BP 109/57
[2016-10-22 06:45] LABS: BASO % 0.2 % (0.0-1.0); EOS % 0.6 % (1.0-4.0); HEMATOCRIT 26.5 % (37.0-47.0); HEMOGLOBIN 8.7 g/dl (12.0-16.0); LYMPH # 1.1 10*3/uL (1.3-4.4); LYMPH % 16.6 % (27.0-41.0); MEAN CELL VOLUME 90.1 fl (81.0-99.0); MEAN CORPUSCULAR HGB 29.6 pg (27.0-31.0); MEAN CORPUSCULAR HGB CONC 32.8 g/dl (33.0-37.0); MONO # 0.6 10*3/uL (0.1-1.0); NEUT # 4.7 10*3/uL (2.3-7.9); NEUT % 73.1 % (47.0-73.0); PLATELET COUNT AUTOMATED 221 10*3/uL (130-400); RED BLOOD COUNT 2.94 10*6/uL (4.10-5.10); RED CELL DISTRI WIDTH 14.6 % (0-14.5); WHITE BLOOD COUNT 6.5 10*3/uL (4.8-10.8)
[2016-10-22 07:23] LABS: EST GLOM FILT AFRICAN AMERICAN > 60 ml/min
[2016-10-22 08:00] VITALS: BP 142/78
== END 2016-10-22 10:58 | disposition other institution (70) | DRG 556 ==
LOC: ED 20:30 → EDHOLD 10-19 00:07 → 5E 10-19 00:07
PROVIDERS: Emergency Medicine Emergency Medical Services; Internal Medicine
DX: M25.551 Pain in right hip (principal); E44.0 Moderate protein-calorie malnutrition; E11.65 Type 2 diabetes mellitus with hyperglycemia; G20 Parkinson's disease; N39.0 Urinary tract infection, site not specified; Z99.81 Dependence on supplemental oxygen; Z96.653 Presence of artificial knee joint, bilateral; B96.4 Proteus (mirabilis) (morganii) as the cause of diseases classified elsewhere; M54.9 Dorsalgia, unspecified; I10 Essential (primary) hypertension; E78.5 Hyperlipidemia, unspecified; I25.10 Atherosclerotic heart disease of native coronary artery without angina pectoris; E55.9 Vitamin D deficiency, unspecified; Z68.27 Body mass index [BMI] 27.0-27.9, adult; Z86.73 Personal history of transient ischemic attack (TIA), and cerebral infarction without residual deficits; I25.2 Old myocardial infarction; Z85.828 Personal history of other malignant neoplasm of skin; Z85.42 Personal history of malignant neoplasm of other parts of uterus; Z85.118 Personal history of other malignant neoplasm of bronchus and lung; Z90.49 Acquired absence of other specified parts of digestive tract; Z87.891 Personal history of nicotine dependence; Z82.3 Family history of stroke; Z83.3 Family history of diabetes mellitus; Z82.49 Family history of ischemic heart disease and other diseases of the circulatory system; Z79.1 Long term (current) use of non-steroidal anti-inflammatories (NSAID); Z79.51 Long term (current) use of inhaled steroids; Z79.4 Long term (current) use of insulin; Z79.899 Other long term (current) drug therapy; Z79.84 Long term (current) use of oral hypoglycemic drugs

== ENCOUNTER 2016-12-08 07:35 | Emergency (ER) | payer OTHER ==
[~2016-12-08] VITALS: Ht 167.6 cm; Wt 79.4 kg
[2016-12-08 07:35] VITALS: BP 165/75
== END 2016-12-08 09:35 | disposition home or self-care (01) ==
LOC: ED 07:35
DX: M54.9 Dorsalgia, unspecified (principal); M25.551 Pain in right hip; M25.552 Pain in left hip; I10 Essential (primary) hypertension; J44.9 Chronic obstructive pulmonary disease, unspecified; J45.909 Unspecified asthma, uncomplicated; I25.10 Atherosclerotic heart disease of native coronary artery without angina pectoris; E11.65 Type 2 diabetes mellitus with hyperglycemia; E78.5 Hyperlipidemia, unspecified; Z86.73 Personal history of transient ischemic attack (TIA), and cerebral infarction without residual deficits; Z87.891 Personal history of nicotine dependence; Z79.899 Other long term (current) drug therapy; W05.0XXA Fall from non-moving wheelchair, initial encounter; Y93.9 Activity, unspecified; Y92.89 Other specified places as the place of occurrence of the external cause; Y99.8 Other external cause status